=== PATIENT | female | born 1965 | race Caucasian/White ===

== ENCOUNTER 2019-05-09 12:56 | Inpatient (IN) ==
[2019-05-09 13:48] LABS: Basophils # (auto) 0.07 K/uL (0-0.2); Basophils % (auto) 0.4 %; Eosinophils # (auto) 0.12 K/uL (0-0.5); Eosinophils % (auto) 0.6 %; Hematocrit (blood only) 45.1 % (37-47); Immature Granulocytes # (auto) 0.08 K/uL (0.00-0.02); Immature Granulocytes % (auto) 0.4 %; Lymphocytes # (auto) 3.38 K/uL (1.2-3.4); Lymphocytes % (auto) 17.8 %; Mean Corpuscular Hemoglobin 33.1 pg (25-34); Mean Corpuscular Hgb Conc 35.5 g/dL (32-36); Mean Corpuscular Volume 93.4 fL (80-100); Mean Platelet Volume 9.4 fL (7.4-10.4); Monocytes % (auto) 6.3 %; Neutrophils # (auto) 14.14 K/uL (1.4-6.5); Neutrophils % (auto) 74.5 %; Platelet Count 342 K/uL (130-400); RDW Coefficient of Variation 14.3 % (11.5-14.5); Red Blood Count 4.83 M/uL (4.2-5.4); White Blood Count 18.99 K/uL (4.8-10.8)
[2019-05-09 14:09] LABS: Albumin Level 3.6 gm/dl (3.4-5.0); BUN Creatinine Ratio 14.1 (10-20); Calcium 9.4 mg/dl (8.5-10.1); Creatinine Clr Calc Pharmacy 83.6 ml/min; Est GFR (African American) 89.4; Est GFR (Non-African American) 77.1; Potassium 4.1 mmol/L (3.5-5.1)
[2019-05-09 14:19] LABS: Albumin Globulin Ratio 0.9 (0.9-2); Bilirubin,Total 0.3 mg/dl (0.2-1); Globulin 4.2 gm/dl (2.5-4.0); Thyroid Stimulating Hormone 3.7 uIu/ml (0.300-4.500); Total Protein 7.8 gm/dl (6.4-8.2)
[2019-05-09 14:25] LABS: Acetaminophen < 2 ug/ml (10-30); Salicylate 5.1 mg/dl (2.8-20)
[2019-05-09 14:55] LABS: Appearance Urine Clear (Clear); Bilirubin Urine Negative (Negative); Blood Urine Negative (Negative); Color Urine Yellow; Glucose Urine UA Negative (Negative); Ketones Urine Negative (Negative); Leukocyte Esterase Urine Negative (Negative); Nitrite Urine Negative (Negative); Protein Urine Negative (Negative); Specific Gravity Urine 1.016 (1.000-1.030); Urobilinogen Urine Negative (Negative)
[2019-05-09 15:15] LABS: Amphetamines+Metham, Urine Neg (Neg); Barbiturates, Urine Neg (Neg); Benzodiazepine, Urine Neg (Neg); Cocaine, Urine Neg (Neg); MDMA (Ecstacy), Urine Neg (Neg); Methadone, Urine Neg (Neg); Opiate, Urine Neg (Neg); Phencyclidine, Urine Neg (Neg)
--- NOTE | 2019-05-09 16:18 | Emergency Department Note ---
Entered by Sania Patino acting as a scribe for Steven Calderon MD History of Present Illness General Chief complaint: Mental Health Evaluation Stated complaint: ANXIETY DEPRESSION, SUICIDE THOUGHTS Time Seen by Provider: 05/09/19 13:20 Source: patient History of Present Illness Provider complaint: Worsening Depression Onset (ago): week(s) 3 Radiation: non-radiation Maximum Pain Intensity: 0 Relieved By: + none Exacerbated By: + none Associated symptoms: + denies other symptoms (HI, hallucinations) and + other ( SI, anxious, excessive sleep); no loss of appetite The patient is a 53 white female w/ no PMHx who presents to the ED w/ CC of worsening depression that began about 3 weeks ago. The patient states the symptoms are not relieved nor exacerbated by anything. Additionally, the patient reports that the symptoms do not radiate anywhere else on the body. The patient states she has been experiencing suicidal ideation, anxiousness, and has been sleeping excessively. The patient notes she is not motivated to do anything anymore and was sent over by [place] for this worsening depression. The patient denies any homicidal ideation, hallucinations or loss of appetite. The patient notes that she has been taking her medications as prescribed and has never tried to hurt herself in the past. The patient mentioned that she does have a plan to overdose on her medication to hurt herself. The patient reports she has not been able to go to work due to these symptoms. The patient states she uses tobacco but denies any drug use. Home Medications Home Medications Medication Instructions Recorded Confirmed Type Trintellix 20 mg PO QAM 05/09/19 05/09/19 History aripiprazole 15 mg PO HS 05/09/19 05/09/19 History lorazepam 1 mg PO BID PRN 05/09/19 05/09/19 History metformin 1,000 mg PO HS 05/09/19 05/09/19 History venlafaxine 150 mg PO DAILY 05/09/19 05/09/19 History Allergies Allergy/AdvReac Type Severity Reaction Status Date / Time chicken derived Allergy Unknown Unknown Unverified 05/09/19 18:53 Past Med/Surg History Medical History No pertinent past medical history Family History Other No pertinent family history in first degree relatives Social History Preferred Language: Hebrew Communication Ability: Effective Manager Alliance Required: No Beliefs That Will Affect Care: None Feels Safe at Home: Yes Smoking Status: Current every day smoker Tobacco Type: cigarettes ; Review of Systems See HPI for pertinent positives & negatives. and A total of 10 systems reviewed and were otherwise negative Physical Exam Vital Signs Vital Signs - 24 hr 05/09/19 13:04 05/09/19 15:36 Temperature 36.9 C Temperature Source Oral Sepsis Recent Fever Within 48 Hours No Sepsis New/Unexplained Change in Mental Status No Sepsis Action Taken by Nursing No Action Required Pulse Rate 108 H Pulse Rate [Finger] 87 Respiratory Rate 16 20 Blood Pressure 143/91 H Blood Pressure [Right Arm] 145/71 H Blood Pressure Mean 108 Blood Pressure Mean [Right Arm] 95 Pulse Oximetry 95 99 Oxygen Delivery Method Room Air Room Air GENERAL: Well appearing, well nourished, NAD, non-toxic. Glasses. EYE EXAM: Normal conjunctiva. PERRL, no anisocoria and EOM's grossly intact w/o pain. OROPHARYNX: Moist mucous membranes. Grossly normal dentition. NECK: Supple, no nuchal rigidity, no adenopathy, non-tender. No signs of meningismus. LUNGS: Clear to auscultation. Normal chest wall mechanics. HEART: NSR, no MRG. ABDOMEN: Abdomen soft, non-tender, normo-active bowel sounds, no masses, no rebound or guarding. BACK: No CVA TTP. SKIN: No rashes and no bruising. UPPER EXTREMITIES: Upper extremities are grossly normal. LOWER EXTREMITIES: No pitting edema. No calf pain. NEURO EXAM: A&O x3, cranial nerves II-XII grossly intact, normal speech, , moves all 4 extremities on command w/o issue. PSYCH: Positive SI. No HI or AVH. Course 1357: Past medical records reviewed. The patient was evaluated in room A08. A complete history and physical exam was performed. 173: I spoke with the Psych employment case manager and they will accept the patient for further evaluation upstairs. Medical Decision Making Differential Diagnosis Differential diagnosis: Etiologies such as psychiatric disorder, infection, hypoglycemia, electrolyte abnormalities, cardiac sources, intracerebral event, toxicological process, neurologic disorder, as well as others were entertained. Medical Records Attestation: I reviewed the patient's medical records. Home Medications Current Medication List: was personally reviewed by me Laboratory Data Attestation: I reviewed the patient's lab results. Result diagrams: 05/09/19 13:35 05/09/19 13:35 Lab Results 05/09/19 05/09/19 05/09/19 Range/Units 13:35 13:35 13:35 WBC 18.99 H (4.8-10.8) K/uL RBC 4.83 (4.2-5.4) M/uL Hgb 16.0 (12.0-16.0) g/dL Hct 45.1 (37-47) % MCV 93.4 (80-100) fL MCH 33.1 (25-34) pg MCHC 35.5 (32-36) g/dL RDW Std Deviation 49.0 H (36.4-46.3) fL RDW Coeff of Joni 14.3 (11.5-14.5) % Plt Count 342 (130-400) K/uL MPV 9.4 (7.4-10.4) fL Immature Gran % (Auto) 0.4 % Neut % (Auto) 74.5 % Lymph % (Auto) 17.8 % Wayne % (Auto) 6.3 % Eos % (Auto) 0.6 % Baso % (Auto) 0.4 % Immature Gran # (Auto) 0.08 H (0.00-0.02) K/uL Neut # (Auto) 14.14 H (1.4-6.5) K/uL Lymph # (Auto) 3.38 (1.2-3.4) K/uL Wayne # (Auto) 1.20 H (0.11-0.59) K/uL Eos # (Auto) 0.12 (0-0.5) K/uL Baso # (Auto) 0.07 (0-0.2) K/uL Sodium 135 L (136-145) mmol/L Potassium 4.1 (3.5-5.1) mmol/L Chloride 103 (98-107) mmol/L Carbon Dioxide 23 (21-32) mmol/L Anion Gap 9.0 (3-11) BUN 12 (7-18) mg/dl Creatinine 0.87 (0.6-1.2) mg/dl Est Cr Clr Drug Dosing 83.6 ml/min Est GFR ( Amer) 89.4 Est GFR (Non-Af Amer) 77.1 BUN/Creatinine Ratio 14.1 (10-20) Glucose 179 H (70-99) mg/dl Calcium 9.4 (8.5-10.1) mg/dl Total Bilirubin 0.3 (0.2-1) mg/dl AST 16 (15-37) U/L ALT 33 (12-78) U/L Alkaline Phosphatase 82 (45-117) U/L Total Protein 7.8 (6.4-8.2) gm/dl Albumin 3.6 (3.4-5.0) gm/dl Globulin 4.2 H (2.5-4.0) gm/dl Albumin/Globulin Ratio 0.9 (0.9-2) TSH 3.700 (0.300-4.500) uIu/ml Urine Color Urine Appearance (Clear) Urine pH (4.5-7.5) Ur Specific [place] (1.000-1.030) Urine Protein (Negative) Urine Glucose (UA) (Negative) Urine Ketones (Negative) Urine Blood (Negative) Urine Nitrite (Negative) Urine Bilirubin (Negative) Urine Urobilinogen (Negative) Ur Leukocyte Esterase (Negative) Salicylates 5.1 (2.8-20) mg/dl Urine Opiates Screen (Neg) Ur Methadone, Qual (Neg) Acetaminophen < 2 L (10-30) ug/ml Urine Barbiturates (Neg) Ur Phencyclidine (PCP) (Neg) U Amphetamin/Meth Scrn (Neg) MDMA (Ecstasy) Screen (Neg) U Benzodiazepines Scrn (Neg) Ur Cocaine Metabolite (Neg) U Marijuana (THC) Screen (Neg) Ethyl Alcohol mg/dL (0-3) mg/dl 05/09/19 05/09/19 05/09/19 Range/Units 13:35 14:45 14:45 WBC (4.8-10.8) K/uL RBC (4.2-5.4) M/uL Hgb (12.0-16.0) g/dL Hct (37-47) % MCV (80-100) fL MCH (25-34) pg MCHC (32-36) g/dL RDW Std Deviation (36.4-46.3) fL RDW Coeff of Joni (11.5-14.5) % Plt Count (130-400) K/uL MPV (7.4-10.4) fL Immature Gran % (Auto) % Neut % (Auto) % Lymph % (Auto) % Wayne % (Auto) % Eos % (Auto) % Baso % (Auto) % Immature Gran # (Auto) (0.00-0.02) K/uL Neut # (Auto) (1.4-6.5) K/uL Lymph # (Auto) (1.2-3.4) K/uL Wayne # (Auto) (0.11-0.59) K/uL Eos # (Auto) (0-0.5) K/uL Baso # (Auto) (0-0.2) K/uL Sodium (136-145) mmol/L Potassium (3.5-5.1) mmol/L Chloride (98-107) mmol/L Carbon Dioxide (21-32) mmol/L Anion Gap (3-11) BUN (7-18) mg/dl Creatinine (0.6-1.2) mg/dl Est Cr Clr Drug Dosing ml/min Est GFR ( Amer) Est GFR (Non-Af Amer) BUN/Creatinine Ratio (10-20) Glucose (70-99) mg/dl Calcium (8.5-10.1) mg/dl Total Bilirubin (0.2-1) mg/dl AST (15-37) U/L ALT (12-78) U/L Alkaline Phosphatase (45-117) U/L Total Protein (6.4-8.2) gm/dl Albumin (3.4-5.0) gm/dl Globulin (2.5-4.0) gm/dl Albumin/Globulin Ratio (0.9-2) TSH (0.300-4.500) uIu/ml Urine Color Yellow Urine Appearance Clear (Clear) Urine pH 5.0 (4.5-7.5) Ur Specific [place] 1.016 (1.000-1.030) Urine Protein Negative (Negative) Urine Glucose (UA) Negative (Negative) Urine Ketones Negative (Negative) Urine Blood Negative (Negative) Urine Nitrite Negative (Negative) Urine Bilirubin Negative (Negative) Urine Urobilinogen Negative (Negative) Ur Leukocyte Esterase Negative (Negative) Salicylates (2.8-20) mg/dl Urine Opiates Screen Neg (Neg) Ur Methadone, Qual Neg (Neg) Acetaminophen (10-30) ug/ml Urine Barbiturates Neg (Neg) Ur Phencyclidine (PCP) Neg (Neg) U Amphetamin/Meth Scrn Neg (Neg) MDMA (Ecstasy) Screen Neg (Neg) U Benzodiazepines Scrn Neg (Neg) Ur Cocaine Metabolite Neg (Neg) U Marijuana (THC) Screen Neg (Neg) Ethyl Alcohol mg/dL < 3.0 (0-3) mg/dl Blood Pressure Blood Pressure Findings: Elevated blood pressure Blood Pressure Disposition: further management by hospitalist NOMAN Narrative Patient was seen and evaluated the bedside. The patient was complaining of depressed mood and suicidal ideation with plan to overdose on pills. Patient has also complained of not being able to go to work secondary to her psychiatric complaints. The patient did a blood work completed the patient was deemed medically clear. The patient does have a white count of 18,000 patient denies infectious symptoms and is well-appearing at the bedside with stable vital signs . Patient was subsequently admitted to the inpatient psychiatric service. I counseled patient on smoking cessation for 5 minutes. Treatment options discussed and resources provided. Patient was not receptive. Impression & Plan Suicidal ideation, Depression, Encounter for smoking cessation counseling Discharge Plan Visit Data Chief Complaint: Mental Health Evaluation Stated Complaint: ANXIETY DEPRESSION, SUICIDE THOUGHTS ED Provider: Steven Calderon Discharge Problem: Suicidal ideation, Depression, Encounter for smoking cessation counseling Patient Disposition: Admitted As Inpatient Discharge Instructions Interventions: ED Discharge Assessment Last Done: 05/09/19 17:46 Discharge Problem: Depression Qualifiers: Depression Type: unspecified Qualified Code(s): F32.9 - Major depressive disorder, single episode, unspecified The scribe's documentation has been prepared under my direction and personally reviewed by me in its entirety. I confirm that the note above accurately reflects all work, treatment, procedures, and medical decision making performed by me.
[2019-05-09] MEDS ORDERED: SODIUM CHLORIDE 0.65% NA SOLN 45 ML (OCEAN) PRN (17:38)
[2019-05-09] MEDS ORDERED: ACETAMINOPHEN 325 MG TAB PO PRN (17:38)
[2019-05-09] MEDS ORDERED: MAGNESIUM HYDROXIDE SUSP 30 ML UDC PO PRN (17:38)
[2019-05-09] MEDS ORDERED: ALUMINUM/MAGNESIUM SUSP 30 ML UDC PO PRN (17:38)
[2019-05-09] MEDS ORDERED: BISMUTH SUBSALICYLATE PER ML OMNICELL CHARGE PO PRN (17:38)
[2019-05-09] MEDS ORDERED: TRINTELLIX~ORDER AWAITING ACTION SCH (18:15)
[2019-05-09] MEDS: METFORMIN HCL 500 MG TAB PO SCH (21:40)
[2019-05-09] MEDS: ARIPiprazole 15 MG TAB PO SCH (21:40)
[2019-05-10] MEDS: VENLAFAXINE HCL XR 150 MG CAPXR PO SCH (08:45)
[2019-05-10] MEDS ORDERED: VORTIOXETINE HYDROBROMIDE PO SCH ×2 (09:00)
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
[2019-05-10] MEDS: LORazepam 1 MG TAB PO PRN (13:19)
[2019-05-10] MEDS: METFORMIN HCL 500 MG TAB PO SCH (20:54)
[2019-05-10] MEDS: ARIPiprazole 15 MG TAB PO SCH (20:54)
[2019-05-11 08:09] LABS: Glucose Fasting 140 mg/dl (70-99)
[2019-05-11 08:14] LABS: Chol HDL Ratio 5; Cholesterol 203 mg/dl (0-200); HDL Cholesterol 44 mg/dl; LDL Cholesterol Calculated 132 mg/dl; Triglycerides 137 mg/dl (0-150); VLDL Cholesterol 27 mg/dl
[2019-05-11] MEDS: VENLAFAXINE HCL XR 150 MG CAPXR PO SCH (08:55)
[2019-05-11] MEDS: VORTIOXETINE HYDROBROMIDE PO SCH (08:57)
--- NOTE | 2019-05-11 10:18 | Psychiatric Progress Note ---
Date of Service May 11, 2019 Impression / Recommendations Impression 53-year-old female admitted voluntarily for inpatient psychiatric treatment due to worsening depression, anxiety, and suicidal ideation in the context of short- term disability/leave from her job due to inability to function as a result of severe depression. Although she has been on short-term disability and off of work for 2 months, she has not had an increase in outpatient services, and thinks symptoms have worsened in that time period due to lack of structure. She has been continued on her outpatient medications here, with a plan to continue venlafaxine XR taper and consider a trial of Rexulti in place of aripiprazole. Today she has a family meeting with her , and we will explore options for increased outpatient supports/treatment in the [facility], such as case management, psych rehab, or IOP. We do not believe there is a [facility] program available in that area, as the closest one is over an hour away. (1) Suicidal ideation: 05/10 - Admits to for several months prior to admission, with consideration to overdose on medications - Admitted to a locked inpatient behavioral health unit, on q15 minute safety checks - Encourage medication initiation/adjustments as indicated - Encourage participation in group and recreational therapies - Gather collateral information from outpatient providers - Suggest family meeting to involve outpatient supports in safety planning - Arrange appropriate aftercare (2) Depression: 05/10 - Continue current medication regimen until collateral information can be obtained from outpatient prescriber. Unclear if patient is being cross-tapered from venlafaxine to Trintellix, but would suggest continuing this process if this is the case. - Fasting glucose and lipid panel ordered for tomorrow morning, given uncertainty of timing of most recent blood work - Coordinate care with outpatient psychiatric prescriber and therapist - Encourage development of healthy and effective coping strategies - Encourage participation in group programming - Encourage family meeting with outpatient supports to discuss discharge and safety planning 05/11 -Care coordinated with An Alvarado yesterday. We will continue to taper off of venlafaxine XR, and consider trial of Rexulti D. -Reviewed fasting glucose and lipid results with patient today: Glucose elevated at 140, she reports poor adherence to diabetic diet recently. Discussed importance of good nutrition and encouraged her to discuss meal planning with in their meeting today. Cholesterol level slightly elevated at 203, FLP otherwise within normal limits. We can forward results to her PCP for ongoing monitoring. -Recommend higher level of outpatient care, will explore during family me eting with today. (3) Anxiety: 05/10 - Continue home medications as above - Hydroxyzine 25mg prn for acute anxiety Inventory Assets Strengths: Willingness for treatment, good relationship with outpatient providers Needs: Development of healthy coping strategies, hope of returning to work Risk Factors Assessment Male: No : Yes Do You Have Access To A Gun?: Yes Health Problems: Yes (diabetes) Mental Health Diagnoses: Yes Substance Use Disorders: No Previous Attempt: No Family History of Suicide: Yes (father completed suicide 15 years ago by gun shot) Previous Psychiatric Hospitalization: No Hopelessness: Yes ("occasionally") Smoker: Yes Protective Factors Assessment Faith Beliefs: Yes : Yes Responsible for Young Children: Yes Employed: Yes ([email or web address] hasn't worked since February) Stable Relationships: Yes Supportive Family: Yes Good Rapport with Provider: Yes Interval History Identifying Information KAREEM GARCIA is a 53-year-old F who currently lives in [place] with her and daughter. Pt has a history of depression and anxiety, and was admitted on 05/09/19 17:39 on a 201 voluntary commitment for worsening depression and suicidal ideation with plan to overdose on medications. Information is gathered from ED documentation and the patient herself - the combination of which is considered to be reliable. Chief Complaint "I was making mistakes at work". Review of Systems Sleep Information Total Hours of Sleep: 7.75 Sleep Comments: pt NPO during the night. pt on q-15 minute checks Meal Information Percent Meal Consumed - Breakfast: 100 Percent Meal Consumed - Lunch: 100 Percent Meal Consumed - Dinner: 100 Subjective Subjective Patient was seen & assessed and interval progress reviewed with treatment team. Staff report she has been out of her room, attending groups and programming, and had a good meeting with family last evening. She requested and received Lorazepam for anxiety. Today she was seen with Gabino Whyte and Edith Zuniga MS2s, with her permission. She reports feeling "anxious," initially about coming into the hospital and now about her family meeting with her , noting that he's "kind of a redneck." She reports intermittent SI which is triggered by "being afraid." She reports good sleep and appetite. Groups have been helpful, although can't think of examples ("feeling cloudy headed"), and is feeling more hopeful. She thinks Abelardo is helping as she is "not quite as tired," but motivation is still poor. Denies side effects. Reviewed her fasting labs, she reports she has not been following a diabetic diet, "I've been bad since I've been depressed, just eating anything, eating out a lot." Her goal of treatment is "to get better, get back to life." She thinks she needs "a clear head, a spine, my spunkiness back" in order to get better. Notes she does ADLs, "but I dread it, it's work, that's just not me." Physical Exam Psychiatric Orientation: alert and cooperative Apperance: appropriately dressed, appropriately groomed and appeared stated age Eye Contact: good eye contact Motor Behavior: steady gait and station and no abnormal motor movements Speech: normal rate/rhythm/volume of speech monotone Affect: + depressed affect, + anxious affect and mood congruent with affect Mood: + depressed mood and + anxious mood Thought Process: goal directed thought process and + concrete thought process Thought Content: reality based without delusions Suicidal Thoughts: + reports suicidal thoughts Homicidal Thoughts: denies homicidal thoughts Hallucinations: no auditory hallucinations Cognition: recent memory grossly intact, attention grossly intact and language grossly intact Insight: + fair insight Judgement: + fair judgement Vital Signs (Past 24 Hours) Last Vital Signs Temp 36.7 C 05/11/19 06:40 Pulse 93 H 05/11/19 06:40 Resp 20 05/11/19 06:40 BP 138/85 05/11/19 06:40 Pulse Ox 97 05/09/19 17:46 Results & Data Laboratory Results Laboratory Results - last 24 hr 05/11/19 07:06 Fasting Glucose 140 H Triglycerides 137 Cholesterol 203 H LDL Cholesterol, Calc 132 VLDL Cholesterol, Calc 27 HDL Cholesterol 44 Cholesterol/HDL Ratio 5 Current Inpatient Medications Current Inpatient Medications: Current Inpatient Medications Acetaminophen (Tylenol) 650 mg PO Q4H PRN PRN Reason: Headache or Minor Fever Stop: 06/08/19 17:37 Al Hydrox/Mg Hydrox/Simethicone (Maalox) 30 ml PO Q4H PRN PRN Reason: GI Upset Stop: 06/08/19 17:37 Aripiprazole (Abilify) 15 mg PO HS PUJA Stop: 06/08/19 21:59 Last Admin: 05/10/19 20:54 Dose: 15 mg Documented by: Bismuth Subsalicylate (Kaopectate) 15 ml PO PRN PRN PRN Reason: Loose Stool Stop: 06/08/19 17:37 Hydroxyzine HCl (Vistaril) 25 mg PO Q4H PRN PRN Reason: Anxiety Stop: 06/08/19 17:37 Hydroxyzine HCl (Vistaril) 50 mg PO HSZ PRN PRN Reason: Insomnia Stop: 06/08/19 17:37 Lorazepam (Ativan) 1 mg PO BID PRN PRN Reason: Anxiety Stop: 06/08/19 17:38 Last Admin: 05/10/19 13:19 Dose: 1 mg Documented by: Magnesium Hydroxide (Milk Of Magnesia) 30 ml PO DAILY PRN PRN Reason: Constipation Stop: 06/08/19 17:37 Metformin HCl (Glucophage) 1,000 mg PO HS PUJA Stop: 06/08/19 21:59 Last Admin: 05/10/19 20:54 Dose: 1,000 mg Documented by: Sodium Chloride ([place] Nasal) 1 - 2 sprays NA PRN PRN PRN Reason: Nasal Dryness/Congestion Stop: 06/08/19 17:37 Venlafaxine HCl (Effexor Extended Release) 150 mg PO DAILY PUJA Stop: 06/09/19 08:59 Last Admin: 05/11/19 08:55 Dose: 150 mg Documented by: Vortioxetine (Trintellix) 1 ea PO QAM PUJA Stop: 06/10/19 08:59 Last Admin: 05/11/19 08:57 Dose: 1 ea Documented by: Mental Health & Subst Abuse Tx Therapist [facility] [place] Clerical Office Worker Name of Clerical Office Worker: None Post Discharge Appointments Primary Care Physician Name Of Family Doctor: Dr Betsy estes [facility] in [place] CPT Code CPT Code 30015 (1) Depression Active/Remission status: currently active Depression Type: major depressive disorder Major depression episode severity: severe Major depression recurrence: recurrent Psychotic features: without psychotic features Qualified Code(s): F33.2 - Major depressive disorder, recurrent severe without psychotic features
[2019-05-11] MEDS: METFORMIN HCL 500 MG TAB PO SCH (21:01)
[2019-05-11] MEDS: ARIPiprazole 15 MG TAB PO SCH (21:01)
[2019-05-12] MEDS: VORTIOXETINE HYDROBROMIDE PO SCH (08:47)
[2019-05-12] MEDS: VENLAFAXINE HCL XR 150 MG CAPXR PO SCH (08:47)
--- NOTE | 2019-05-12 11:27 | Psychiatric Progress Note ---
Date of Service May 12, 2019 Impression / Recommendations Impression 53-year-old female admitted voluntarily for inpatient psychiatric treatment due to worsening depression, anxiety, and suicidal ideation in the context of short- term disability/leave from her job due to inability to function as a result of severe depression. Although she has been on short-term disability and off of work for 2 months, she has not had an increase in outpatient services, and thinks symptoms have worsened in that time period due to lack of structure. She has been continued on her outpatient medications here, and venlafaxine has been tapered to 75mg given recent addition of Trintellix to her outpatient regimen. Pt participated in a family meeting with her , who remains supportive. Despite medication adjustments and engagement in group programming, patient does not feel as though she is progressing. She remains at high risk of harm to self if she is discharged prematurely. (1) Suicidal ideation: 05/10 - Admits to SI for several months prior to admission, with consideration to overdose on medications - Admitted to a locked inpatient behavioral health unit, on q15 minute safety checks - Encourage medication initiation/adjustments as indicated - Encourage participation in group and recreational therapies - Gather collateral information from outpatient providers - Suggest family meeting to involve outpatient supports in safety planning - Arrange appropriate aftercare 05/12 - Pt admits to SI last evening in the context of hopelessness about returning to work - Admits to feeling safe in the hospital, but unable to contract for safety on an outpatient basis (2) Depression: 05/10 - Continue current medication regimen until collateral information can be obtained from outpatient prescriber. Unclear if patient is being cross-tapered from venlafaxine to Trintellix, but would suggest continuing this process if this is the case. - Fasting glucose and lipid panel ordered for tomorrow morning, given uncertainty of timing of most recent blood work - Coordinate care with outpatient psychiatric prescriber and therapist - Encourage development of healthy and effective coping strategies - Encourage participation in group programming - Encourage family meeting with outpatient supports to discuss discharge and safety planning 05/11 -Care coordinated with An Alvarado yesterday. We will continue to taper off of venlafaxine XR, and consider trial of Rexulti D. -Reviewed fasting glucose and lipid results with patient today: Glucose elevated at 140, she reports poor adherence to diabetic diet recently. Discussed importance of good nutrition and encouraged her to discuss meal planning with in their meeting today. Cholesterol level slightly elevated at 203, FLP otherwise within normal limits. We can forward results to her PCP for ongoing monitoring. -Recommend higher level of outpatient care, will explore during family meeting with today. 05/12 - Pt agreeable to tapering venlafaxine to 75mg starting tomorrow morning, as Trintellix has been recently started and appears to be well-tolerated - Will continue Trintellix and Abilify at current doses at this time - Family meeting held with yesterday, who appears to be supportive - Pt agreeable to a casey saw operator and referral has been initiated (3) Anxiety: 05/10 - Continue home medications as above - Hydroxyzine 25mg prn for acute anxiety 05/12 - Continue as above Inventory Assets Strengths: Willingness for treatment, good relationship with outpatient providers Needs: Development of healthy coping strategies, hope of returning to work Risk Factors Assessment Male: No : Yes Do You Have Access To A Gun?: Yes Health Problems: Yes (diabetes) Mental Health Diagnoses: Yes Substance Use Disorders: No Previous Attempt: No Family History of Suicide: Yes (father completed suicide 15 years ago by gun shot) Previous Psychiatric Hospitalization: No Hopelessness: Yes ("occasionally") Smoker: Yes Protective Factors Assessment Spiritism Beliefs: Yes : Yes Responsible for Young Children: Yes Employed: Yes ([employer] hasn't worked since February) Stable Relationships: Yes Supportive Family: Yes Good Rapport with Provider: Yes Interval History Identifying Information KAREEM GARCIA is a 53-year-old F who currently lives in [place] with her and daughter. Pt has a history of depression and anxiety, and was admitted on 05/09/19 17:39 on a 201 voluntary commitment for worsening depression and suicidal ideation with plan to overdose on medications. Information is gathered from ED documentation and the patient herself - the combination of which is considered to be reliable. Chief Complaint "I had a 1:30 meeting with my yesterday." Review of Systems Notes Constitutional: denied Cardiovascular: denied Respiratory: denied Gastrointestinal: denied Neurological: denied Psychiatric: denies symptoms other than stated above Total of at least 10 systems reviewed, pertinent positives as above and in HPI. Sleep Information Total Hours of Sleep: 8.25 Sleep Comments: pt NPO during the night. pt on q-15 minute checks Meal Information Percent Meal Consumed - Breakfast: 100 Percent Meal Consumed - Lunch: 100 Percent Meal Consumed - Dinner: 100 Subjective Subjective Patient was seen & assessed and interval progress reviewed with nursing and social work. Staff report the patient has been participating appropriately in group programming. She participated in a family meeting with her yesterday. The meeting was reported to have gone well, discussing patient's goal to return to work and ways to support this goal - however, patient was reportedly more hopeless last evening. She reportedly rated her mood a 4/10 and "let down" last evening. Pt was seen today to assess progress since admission. Pt is cooperative with conversation today. She shares information from her meeting with her - feeling he remains supportive and willing to assist with her transition home. Pt admits she was upset last evening due to feeling as though staff was recommending she take longer to return to work. Pt admits to SI last evening as she was considering these ideas. Pt was agreeable to a conversation with this provider about finding a "balance" to this timing. We reviewed that this may be a difficult transition, especially as she was limited in motivation to even provide basic self-care prior to admission. Pt acknowledges that additional support will be helpful, and that she will be more successful returning to work if she allows time for improvement in her condition. Pt states, "I don't feel like I'm any better. I'm not making any progress." When asked what specifically she would like to improve on, she provides a rather vague answer of "the shaking" - which she has previously stated is a result of her anxiety. Pt was provided with education regarding medication changes, and that benefits are anticipated to be ongoing over the next few weeks, but not immediate. This provider also encouraged the patient to focusing on developing healthy coping strategies. Pt is agreeable to continuing her venlafaxine taper, by reducing her dose to 75mg tomorrow morning. She denies medication side effects or other acute concerns. Physical Exam Psychiatric Orientation: alert, oriented x 3 and cooperative Apperance: appropriately dressed, appropriately groomed and appeared stated age Eye Contact: good eye contact Motor Behavior: steady gait and station and no abnormal motor movements Speech: normal rate/rhythm/volume of speech Affect: + depressed affect, + anxious affect and mood congruent with affect Mood: + depressed mood ("I don't feel like I've been getting any better") Thought Process: goal directed thought process, clear/coherent thought process and + concrete thought process Thought Content: reality based without delusions Suicidal Thoughts: + reports suicidal thoughts (more pronounced when considering time until she can return to work) Hallucinations: no auditory hallucinations and no visual hallucinations Cognition: remote memory grossly intact, attention grossly intact and language grossly intact Insight: + fair insight Judgement: + fair judgement Vital Signs (Past 24 Hours) Last Vital Signs Temp 36.7 C 05/12/19 06:39 Pulse 82 05/12/19 06:40 Resp 18 05/12/19 06:39 BP 128/83 05/12/19 06:40 Pulse Ox 97 05/09/19 17:46 Results & Data Current Inpatient Medications Current Inpatient Medications: Current Inpatient Medications Acetaminophen (Tylenol) 650 mg PO Q4H PRN PRN Reason: Headache or Minor Fever Stop: 06/08/19 17:37 Al Hydrox/Mg Hydrox/Simethicone (Maalox) 30 ml PO Q4H PRN PRN Reason: GI Upset Stop: 06/08/19 17:37 Aripiprazole (Abilify) 15 mg PO HS PUJA Stop: 06/08/19 21:59 Last Admin: 05/11/19 21:01 Dose: 15 mg Documented by: Bismuth Subsalicylate (Kaopectate) 15 ml PO PRN PRN PRN Reason: Loose Stool Stop: 06/08/19 17:37 Hydroxyzine HCl (Vistaril) 25 mg PO Q4H PRN PRN Reason: Anxiety Stop: 06/08/19 17:37 Hydroxyzine HCl (Vistaril) 50 mg PO HSZ PRN PRN Reason: Insomnia Stop: 06/08/19 17:37 Lorazepam (Ativan) 1 mg PO BID PRN PRN Reason: Anxiety Stop: 06/08/19 17:38 Last Admin: 05/10/19 13:19 Dose: 1 mg Documented by: Magnesium Hydroxide (Milk Of Magnesia) 30 ml PO DAILY PRN PRN Reason: Constipation Stop: 06/08/19 17:37 Metformin HCl (Glucophage) 1,000 mg PO HS PUJA Stop: 06/08/19 21:59 Last Admin: 05/11/19 21:01 Dose: 1,000 mg Documented by: Sodium Chloride ([place] Nasal) 1 - 2 sprays NA PRN PRN PRN Reason: Nasal Dryness/Congestion Stop: 06/08/19 17:37 Venlafaxine HCl (Effexor Extended Release) 150 mg PO DAILY PUJA Stop: 06/09/19 08:59 Last Admin: 05/12/19 08:47 Dose: 150 mg Documented by: Vortioxetine (Trintellix) 1 ea PO QAM PUJA Stop: 06/10/19 08:59 Last Admin: 05/12/19 08:47 Dose: 1 ea Documented by: Mental Health & Subst Abuse Tx Psychiatrist Name of Psychiatrist: Juan Coyle Psychiatrist's Date of Appointment with Psychiatrist: 06/03/19 Time of Appointment with Psychiatrist: 10:15AM [facility]rap[facility] [place] Therapist's Speed Belt Sander Tender Name of Speed Belt Sander Tender: .- Post Discharge Appointments Primary Care Physician Name Of Family Doctor: Dr Betsy estes [facility] in [place] Primary Care Provider Appointment Comment: As needed Contact Information Discharge Discharge [address]: [address] [place] [address] [place] [id number] CPT Code CPT Code 96021 (1) Depression Active/Remission status: currently active Depression Type: major depressive disorder Major depression episode severity: severe Major depression recurrence: recurrent Psychotic features: without psychotic features Qualified Code(s): F33.2 - Major depressive disorder, recurrent severe without psychotic features
[2019-05-12] MEDS: LORazepam 1 MG TAB PO PRN (12:10)
[2019-05-12] MEDS: ARIPiprazole 15 MG TAB PO SCH (21:04)
[2019-05-12] MEDS: METFORMIN HCL 500 MG TAB PO SCH (21:04)
[2019-05-13] MEDS: VENLAFAXINE HCL XR 75 MG CAPXR PO SCH (09:02)
[2019-05-13] MEDS: VORTIOXETINE HYDROBROMIDE PO SCH (09:02)
--- NOTE | 2019-05-13 10:23 | Psychiatric Progress Note ---
Date of Service May 13, 2019 Impression / Recommendations Impression 53-year-old female admitted voluntarily for inpatient psychiatric treatment due to worsening depression, anxiety, and suicidal ideation in the context of short- term disability/leave from her job due to inability to function as a result of severe depression. Although she has been on short-term disability and off of work for 2 months, she has not had an increase in outpatient services, and thinks symptoms have worsened in that time period due to lack of structure. She has been continued on her outpatient medications here, and venlafaxine has been tapered to 75mg given recent addition of Trintellix to her outpatient regimen. Pt participated in a family meeting with her , who remains supportive. Despite medication adjustments and engagement in group programming, patient does not feel as though she is progressing. She remains at high risk of harm to self if she is discharged prematurely. (1) Suicidal ideation: 05/10 - Admits to SI for several months prior to admission, with consideration to overdose on medications - Admitted to a locked inpatient behavioral health unit, on q15 minute safety checks - Encourage medication initiation/adjustments as indicated - Encourage participation in group and recreational therapies - Gather collateral information from outpatient providers - Suggest family meeting to involve outpatient supports in safety planning - Arrange appropriate aftercare 05/12 - Pt admits to SI last evening in the context of hopelessness about returning to work - Admits to feeling safe in the hospital, but unable to contract for safety on an outpatient basis 05/13 - Pt denies SI (2) Depression: 05/10 - Continue current medication regimen until collateral information can be obtained from outpatient prescriber. Unclear if patient is being cross-tapered from venlafaxine to Trintellix, but would suggest continuing this process if this is the case. - Fasting glucose and lipid panel ordered for tomorrow morning, given uncertainty of timing of most recent blood work - Coordinate care with outpatient psychiatric prescriber and therapist - Encourage development of healthy and effective coping strategies - Encourage participation in group programming - Encourage family meeting with outpatient supports to discuss discharge and safety planning 05/11 -Care coordinated with An Alvarado yesterday. We will continue to taper off of venlafaxine XR, and consider trial of Rexulti D. -Reviewed fasting glucose and lipid results with patient today: Glucose elevated at 140, she reports poor adherence to diabetic diet recently. Discussed importance of good nutrition and encouraged her to discuss meal planning with in their meeting today. Cholesterol level slightly elevated at 203, FLP otherwise within normal limits. We can forward results to her PCP for ongoing monitoring. -Recommend higher level of outpatient care, will explore during family meeting with today. 05/12 - Pt agreeable to tapering venlafaxine to 75mg starting tomorrow morning, as Trintellix has been recently started and appears to be well-tolerated - Will continue Trintellix and Abilify at current doses at this time - Family meeting held with yesterday, who appears to be supportive - Pt agreeable to a ed case manager and referral has been initiated 05/13 - Continue current medication regimen: venlafaxine 75mg, Trintellix 20mg, and aripiprazole 15mg - Pt reporting improvement in mood and was agreeable to case management referral (3) Anxiety: 05/10 - Continue home medications as above - Hydroxyzine 25mg prn for acute anxiety 05/12 - Continue as above Inventory Assets Strengths: Willingness for treatment, good relationship with outpatient providers Needs: Development of healthy coping strategies, hope of returning to work Risk Factors Assessment Male: No : Yes Do You Have Access To A Gun?: Yes Health Problems: Yes (diabetes) Mental Health Diagnoses: Yes Substance Use Disorders: No Previous Attempt: No Family History of Suicide: Yes (father completed suicide 15 years ago by gun shot) Previous Psychiatric Hospitalization: No Hopelessness: Yes ("occasionally") Smoker: Yes Protective Factors Assessment Amish Beliefs: Yes : Yes Responsible for Young Children: Yes Employed: Yes ([employer] hasn't worked since February) Stable Relationships: Yes Supportive Family: Yes Good Rapport with Provider: Yes Interval History Identifying Information KAREEM GARCIA is a 53-year-old F who currently lives in [place] with her and daughter. Pt has a history of depression and anxiety, and was ad mitted on 05/09/19 17:39 on a 201 voluntary commitment for worsening depression and suicidal ideation with plan to overdose on medications. Information is gathered from ED documentation and the patient herself - the combination of which is considered to be reliable. Chief Complaint "Feeling good, a lot better." Review of Systems Notes Constitutional: denied Cardiovascular: denied Respiratory: denied Gastrointestinal: denied Neurological: denied Psychiatric: denies symptoms other than stated above Total of at least 10 systems reviewed, pertinent positives as above and in HPI. Sleep Information Total Hours of Sleep: 6.25 Sleep Comments: pt NPO during the night. pt on q-15 minute checks Meal Information Percent Meal Consumed - Breakfast: 100 Percent Meal Consumed - Lunch: 100 Percent Meal Consumed - Dinner: 100 Subjective Subjective Patient was seen & assessed and interval progress reviewed with treatment team. Staff reports the patient has been doing well. She appears to be mildly "on- edge", but pleasant with interactions. Pt continues to state that her goal is to eventually return to work. Pt was seen today to assess progress since admission. Pt states she is "good, a lot better" today. She is initially unable to provide concrete ways in which her condition has improved, but when given choices identifies that her anxiety is reduced and her mood is improved. Pt states that her mood is currently a 5-6/10 - when asked what her "ideal" or "comfortable" mood would be, she states, "probably a 7." Pt admits to feeling more optimistic and is hopeful for discharge soon. She denies suicidal ideation recently. She denies physical concerns related to medication adjustments. Physical Exam Psychiatric Orientation: alert, oriented x 3 and cooperative (and pleasant) Apperance: appropriately dressed, appropriately groomed and appeared stated age Eye Contact: good eye contact Motor Behavior: steady gait and station and no abnormal motor movements Speech: normal rate/rhythm/volume of speech Affect: euthymic affect (bright, smiling appropriately ) and mood congruent with affect Mood: + depressed mood (still admitting to depressive symptoms, but states "goo d, a lot better") and + anxious mood ("but a lot less anxious") Thought Process: goal directed thought process, linear/logical thought process, clear/coherent thought process and thought association intact Thought Content: reality based without delusions; no hopelessness and no loneliness Suicidal Thoughts: denies suicidal thoughts and denies suicidal intent Homicidal Thoughts: denies homicidal thoughts Hallucinations: no auditory hallucinations and no visual hallucinations Cognition: remote memory grossly intact, attention grossly intact and language grossly intact Estimated Intelligence: consistent with education level Insight: + fair insight Judgement: + fair judgement Vital Signs (Past 24 Hours) Last Vital Signs Temp 36.6 C 05/13/19 06:28 Pulse 108 H 05/13/19 06:29 Resp 18 05/13/19 06:28 BP 136/85 05/13/19 06:29 Pulse Ox 97 05/09/19 17:46 Results & Data Current Inpatient Medications Current Inpatient Medications: Current Inpatient Medications Acetaminophen (Tylenol) 650 mg PO Q4H PRN PRN Reason: Headache or Minor Fever Stop: 06/08/19 17:37 Al Hydrox/Mg Hydrox/Simethicone (Maalox) 30 ml PO Q4H PRN PRN Reason: GI Upset Stop: 06/08/19 17:37 Aripiprazole (Abilify) 15 mg PO HS PUJA Stop: 06/08/19 21:59 Last Admin: 05/12/19 21:04 Dose: 15 mg Documented by: Bismuth Subsalicylate (Kaopectate) 15 ml PO PRN PRN PRN Reason: Loose Stool Stop: 06/08/19 17:37 Hydroxyzine HCl (Vistaril) 25 mg PO Q4H PRN PRN Reason: Anxiety Stop: 06/08/19 17:37 Hydroxyzine HCl (Vistaril) 50 mg PO HSZ PRN PRN Reason: Insomnia Stop: 06/08/19 17:37 Lorazepam (Ativan) 1 mg PO BID PRN PRN Reason: Anxiety Stop: 06/08/19 17:38 Last Admin: 05/12/19 12:10 Dose: 1 mg Documented by: Magnesium Hydroxide (Milk Of Magnesia) 30 ml PO DAILY PRN PRN Reason: Constipation Stop: 06/08/19 17:37 Metformin HCl (Glucophage) 1,000 mg PO HS PUJA Stop: 06/08/19 21:59 Last Admin: 05/12/19 21:04 Dose: 1,000 mg Documented by: Sodium Chloride (Oliver Nasal) 1 - 2 sprays NA PRN PRN PRN Reason: Nasal Dryness/Congestion Stop: 06/08/19 17:37 Venlafaxine HCl (Effexor Extended Release) 75 mg PO DAILY PUJA Stop: 06/12/19 08:59 Last Admin: 05/13/19 09:02 Dose: 75 mg Documented by: Vortioxetine (Trintellix) 1 ea PO QAM PUJA Stop: 06/10/19 08:59 Last Admin: 05/13/19 09:02 Dose: 1 ea Documented by: Mental Health & Subst Abuse Tx Psychiatrist Name of Psychiatrist: Juan Coyle Psychiatrist's Date of Appointment with Psychiatrist: 06/03/19 Time of Appointment with Psychiatrist: 10:15 AM Therapist Name of Therapist: Jazlyn Zarco in [place] Therapist's Date of Therapist Appointment: 05/19/19 Time of Therapist Appointment: 11:30 a.m. Edge Molder Name of Edge Molder: Chanel estes [address] [place], [address] Phone Number for Edge Molder: [phone] Date of Appointment with Edge Molder: 05/18/19 Time of Appointment with Edge Molder: 1pm Case Management Appointment Comment: take along proof of income disability income, proof of insurance & taxes Post Discharge Appointments Primary Care Physician Name Of Family Doctor: Dr Meyer at [facility] in [place] Primary Care Provider Appointment Comment: As needed Contact Information Discharge Discharge Address: [address] [place] [address] [place] [id number] CPT Code CPT Code 47369 (1) Depression Active/Remission status: currently active Depression Type: major depressive disorder Major depression episode severity: severe Major depression recurrence: recurrent Psychotic features: without psychotic features Qualified Code(s): F33.2 - Major depressive disorder, recurrent severe without psychotic features
[2019-05-13] MEDS: LORazepam 1 MG TAB PO PRN (15:11)
[2019-05-13] MEDS: METFORMIN HCL 500 MG TAB PO SCH (21:02)
[2019-05-13] MEDS: ARIPiprazole 15 MG TAB PO SCH (21:02)
[2019-05-14] MEDS: VENLAFAXINE HCL XR 75 MG CAPXR PO SCH (08:45)
[2019-05-14] MEDS: VORTIOXETINE HYDROBROMIDE PO SCH (08:45)
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
== END 2019-05-14 12:55 | disposition home or self-care (01) | DRG 885 ==
LOC: ED 12:56 → 3S 17:39